=== PATIENT | male | born 1970 | race Caucasian/White ===

== ENCOUNTER 2020-12-10 16:44 | Inpatient (IN) ==
[2020-12-10 17:25] LABS: Basophils # 0.1 K/mcL (0.0-0.2); Basophils % 0.4 %; Eosinophils # 0.1 K/mcL (0.0-0.6); Eosinophils % 0.7 %; Hematocrit 43.1 % (37.5-50.1); Hemoglobin 13.9 g/dL (12.9-16.9); Immature Granulocytes % 0.8 % (0-4); Lymphocytes # 1.2 K/mcL (0.6-4.6); Lymphocytes % 8.8 %; Mean Corpuscular HGB Conc 32.3 g/dL (31.6-35.5); Mean Corpuscular Hemoglobin 28.3 pg (28.0-33.3); Mean Corpuscular Volume 87.8 fL (83.0-100.0); Mean Platelet Volume 9.1 fL (9.4-12.4); Monocytes # 0.8 K/mcL (0.0-1.3); Monocytes % 5.8 %; Neutrophils # 11.3 K/mcL (1.6-8.9); Platelet Count 279 K/mcL (140-400); Red Blood Count 4.91 M/mcL (4.19-5.50); Red Cell Distribution Width 13.8 % (11.5-14.5); Segmented Neutrophils % 83.5 %; White Blood Count 13.6 K/mcL (4.3-11.1)
[2020-12-10 17:48] LABS: Bilirubin,Urine Negative (Negative); Blood,Urine Negative (Negative); Clarity,Urine Clear (Clear); Color,Urine Colorless (Yellow); Glucose,Urine (UA) Normal (Normal); Ketones,Urine Negative (Negative); Leukocyte Esterase,Urine Negative (Negative); Nitrite,Urine Negative (Negative); PH,Urine 6.5 pH Units (5.0-8.0); Protein,Urine Negative (Neg-Trace); Specific Gravity,Urine 1.012 (1.010-1.025); Urobilinogen,Urine Normal (Normal)
[2020-12-10 17:50] LABS: Alanine Aminotransferase 22 Units/L (7-52); Albumin 4.2 g/dL (3.5-5.7); Albumin/Globulin Ratio 1.4 (1.1-2.2); Alkaline Phosphatase 55 Units/L (34-104); Aspartate Amino Transferase 19 Units/L (13-39); BUN/Creatinine Ratio 8 (6-26); Bilirubin,Indirect 0.3 mg/dL (0.0-1.0); Bilirubin,Total 0.3 mg/dL (0.3-1.0); Blood Urea Nitrogen 11 mg/dL (6-20); Carbon Dioxide 25 mEq/L (23-29); Chloride 104 mEq/L (98-107); Globulin 3.1 g/dL (2.4-3.5); Glucose 133 mg/dL (70-105); Lipase 145 Units/L (11-82); Osmolality,Calculated 287 (280-300); Potassium 3.4 mEq/L (3.5-5.1); Sodium 138 mEq/L (136-145); Total Protein 7.3 g/dL (6.4-8.9); Troponin I < 0.03 ng/mL (< 0.04); eGFR For African Americans > 60 (> 60); eGFR For Non-African Americans 57 (> 60)
[2020-12-10] MEDS ORDERED: Aspirin 81 MG TAB.CHEW PO ONE (18:03)
[2020-12-10] MEDS ORDERED: Morphine Sulfate 2 MG/ML SYRINGE IVP ONE (18:03)
[2020-12-10] MEDS ORDERED: Ondansetron 4 MG/2 ML VIAL IVP ONE (18:03)
[2020-12-10] MEDS ORDERED: 0.9 % Sodium Chloride 1,000 ML IVC ONE (18:04)
[2020-12-10] MEDS ORDERED: Isovue-370 500 ML BOTTLE IVP ONE (18:04)
[2020-12-10] MEDS ORDERED: Piperacillin/Tazobactam 3.375 GM in Water for inj. (sterile) 20 ML IVP ONE (20:04)
[2020-12-10] MEDS ORDERED: *HR* HYDROmorphone (PF) 1 MG/ML SYRINGE IVP ONE (20:04)
[2020-12-10] MEDS ORDERED: Naloxone 0.4 MG/ML INJ IVP PRN (23:59)
[2020-12-10] MEDS ORDERED: Melatonin 3 MG TABLET PO PRN (23:59)
[2020-12-10] MEDS ORDERED: Ondansetron 4 MG/2 ML VIAL IVP PRN (23:59)
[2020-12-11] MEDS ORDERED: 0.9 % Sodium Chloride 1,000 ML IVC ONE (03:07)
[2020-12-11] MEDS ORDERED: Piperacillin/Tazobactam 3.375 GM in 0.9 % Sodium Chloride Mini Bag 100 ML IVPB SCH (05:00)
[2020-12-11 06:48] LABS: Basophils % 0.4 %; Eosinophils # 0.1 K/mcL (0.0-0.6); Eosinophils % 0.9 %; Hematocrit 44.2 % (37.5-50.1); Hemoglobin 14.4 g/dL (12.9-16.9); Immature Granulocytes % 0.5 % (0-4); Immature Platelets 2.6 % (1.1-6.1); Lymphocytes # 1.3 K/mcL (0.6-4.6); Lymphocytes % 11.7 %; Mean Corpuscular HGB Conc 32.6 g/dL (31.6-35.5); Mean Corpuscular Hemoglobin 29.4 pg (28.0-33.3); Mean Corpuscular Volume 90.2 fL (83.0-100.0); Mean Platelet Volume 9.7 fL (9.4-12.4); Monocytes # 0.8 K/mcL (0.0-1.3); Monocytes % 6.8 %; Neutrophils # 9.1 K/mcL (1.6-8.9); Platelet Count 277 K/mcL (140-400); Red Cell Distribution Width 14.1 % (11.5-14.5); Segmented Neutrophils % 79.7 %; White Blood Count 11.4 K/mcL (4.3-11.1)
[2020-12-11 07:10] LABS: Alanine Aminotransferase 45 Units/L (7-52); Albumin/Globulin Ratio 1.4 (1.1-2.2); Alkaline Phosphatase 69 Units/L (34-104); Aspartate Amino Transferase 55 Units/L (13-39); BUN/Creatinine Ratio 6 (6-26); Bilirubin,Total 0.4 mg/dL (0.3-1.0); Blood Urea Nitrogen 9 mg/dL (6-20); Calcium 8.6 mg/dL (8.6-10.3); Carbon Dioxide 28 mEq/L (23-29); Chloride 104 mEq/L (98-107); Globulin 2.9 g/dL (2.4-3.5); Glucose 97 mg/dL (70-105); Magnesium 2.2 mg/dL (1.6-2.6); Osmolality,Calculated 287 (280-300); Phosphorous 3.8 mg/dL (2.7-4.5); Potassium 3.7 mEq/L (3.5-5.1); Sodium 139 mEq/L (136-145); Total Protein 6.9 g/dL (6.4-8.9); eGFR For African Americans > 60 (> 60); eGFR For Non-African Americans 54 (> 60)
[2020-12-11 07:15] LABS: Basophils # 0.1 K/mcL (0.0-0.2)
[2020-12-11 07:16] LABS: Platelet Estimate Normal (Normal)
[2020-12-11] MEDS ORDERED: *HR* FentaNYL (PF) 100 MCG/2 ML VIAL ONE (07:31)
[2020-12-11] MEDS ORDERED: *HR* Midazolam HCl 2 MG/2 ML VIAL ONE (07:31)
[2020-12-11] MEDS ORDERED: *HR* Propofol 200 MG/20 ML VIAL IVP ONE (07:32)
[2020-12-11] MEDS ORDERED: *HR* Rocuronium Bromide 50 MG/5 ML VIAL ONE (07:33)
[2020-12-11] MEDS ORDERED: Lidocaine -MPF 2% 2 ML VIAL ONE (07:33)
[2020-12-11] MEDS ORDERED: *HR* Remifentanil 1 MG VIAL IVP ONE (08:42)
[2020-12-11] MEDS ORDERED: *HR* OxyCODONE Immed Rel 5 MG TABLET PO PRN (08:48)
[2020-12-11] MEDS ORDERED: *HR* HYDROmorphone PF 0.5 MG/0.5 ML SYRINGE IVP PRN (08:48)
[2020-12-11] MEDS ORDERED: Acetaminophen IV 1,000 MG/100 ML BAG IVPB ONE (08:53)
[2020-12-11] MEDS ORDERED: Ondansetron 4 MG/2 ML VIAL ONE (09:27)
[2020-12-11] MEDS ORDERED: *HR* HYDROMORPHONE 2 MG/ML VIAL ONE (10:13)
[2020-12-11] MEDS ORDERED: Sugammadex Sodium 200 MG/2 ML VIAL IV ONE (10:27)
[2020-12-11] MEDS ORDERED: *HR* LORazepam 1 MG TABLET PO PRN (11:21)
[2020-12-11] MEDS ORDERED: Naloxone 0.4 MG/ML INJ IVP PRN (11:21)
[2020-12-11] MEDS ORDERED: Melatonin 3 MG TABLET PO PRN (11:21)
[2020-12-11] MEDS ORDERED: Ringers Solution, Lactated 1,000 ML ONE (11:23)
[2020-12-11] MEDS: Piperacillin/Tazobactam 3.375 GM in 0.9 % Sodium Chloride Mini Bag 100 ML IVPB SCH ×2 (14:35→21:17)
[2020-12-11] MEDS ORDERED: 0.9 % Sodium Chloride 1,000 ML ONE (15:01)
[2020-12-11] MEDS ORDERED: 0.9 % Sodium Chloride 1,000 ML IV ONE (15:07)
[2020-12-11] MEDS ORDERED: Ringers Solution, Lactated 1,000 ML IVC SCH (17:45)
[2020-12-11] MEDS: Ondansetron 4 MG/2 ML VIAL IVP PRN (17:55)
[2020-12-11] MEDS ORDERED: traZODone 50 MG TABLET PO SCH (21:00)
[2020-12-11] MEDS: METHYLPHENIDATE HCL 10 MG PO SCH (21:12)
[2020-12-12] MEDS: Ondansetron 4 MG/2 ML VIAL IVP PRN (01:59)
[2020-12-12] MEDS ORDERED: Acetaminophen IV 1,000 MG/100 ML BAG IVPB ONE ×2 (02:16→08:35)
[2020-12-12] MEDS: Piperacillin/Tazobactam 3.375 GM in 0.9 % Sodium Chloride Mini Bag 100 ML IVPB SCH ×3 (04:28→20:15)
[2020-12-12 05:58] LABS: Basophils % 0.2 %; Hematocrit 30.2 % (37.5-50.1); Immature Granulocytes % 0.7 % (0-4); Lymphocytes # 1.2 K/mcL (0.6-4.6); Lymphocytes % 4.8 %; Mean Corpuscular HGB Conc 32.8 g/dL (31.6-35.5); Mean Corpuscular Hemoglobin 29.3 pg (28.0-33.3); Mean Corpuscular Volume 89.3 fL (83.0-100.0); Mean Platelet Volume 9.5 fL (9.4-12.4); Monocytes # 1.4 K/mcL (0.0-1.3); Monocytes % 5.6 %; Neutrophils # 21.8 K/mcL (1.6-8.9); Platelet Count 315 K/mcL (140-400); Red Blood Count 3.38 M/mcL (4.19-5.50); Red Cell Distribution Width 14.2 % (11.5-14.5); Segmented Neutrophils % 88.7 %
[2020-12-12 06:01] LABS: Basophils # 0.1 K/mcL (0.0-0.2); Hemoglobin 9.9 g/dL (12.9-16.9); White Blood Count 24.6 K/mcL (4.3-11.1)
[2020-12-12 06:23] LABS: Albumin 3.9 g/dL (3.5-5.7); Albumin/Globulin Ratio 1.4 (1.1-2.2); Bilirubin,Total 0.5 mg/dL (0.3-1.0); Calcium 8.3 mg/dL (8.6-10.3); Globulin 2.7 g/dL (2.4-3.5); Magnesium 1.8 mg/dL (1.6-2.6); Potassium 4.3 mEq/L (3.5-5.1); Total Protein 6.6 g/dL (6.4-8.9)
[2020-12-12 06:39] LABS: Platelet Estimate Normal (Normal)
[2020-12-12] MEDS: METHYLPHENIDATE HCL 10 MG PO SCH ×2 (06:54→20:18)
[2020-12-12] MEDS ORDERED: Orphenadrine 60 MG/2 ML VIAL IVP ONE (08:36)
[2020-12-12] MEDS ORDERED: *HR* OxyCODONE Immed Rel 5 MG TABLET PO PRN (08:36)
[2020-12-12] MEDS ORDERED: Simethicone 80 MG TAB.CHEW PO PRN (08:36)
[2020-12-12] MEDS ORDERED: 0.9 % Sodium Chloride 1,000 ML IVC ONE (08:42)
[2020-12-12] MEDS ORDERED: amLODIPine 5 MG TABLET PO SCH (09:00)
[2020-12-12] MEDS: BuPROPion SR (12 HR) 150 MG TABLET PO SCH (09:19)
[2020-12-12] MEDS: 0.9 % Sodium Chloride 1,000 ML IVC SCH (10:42)
[2020-12-12 14:30] LABS: Basophils % 0.1 %; Eosinophils % 0.1 %; Hematocrit 23.1 % (37.5-50.1); Immature Granulocytes % 0.6 % (0-4); Lymphocytes # 1.5 K/mcL (0.6-4.6); Lymphocytes % 8.9 %; Mean Corpuscular HGB Conc 32.9 g/dL (31.6-35.5); Mean Corpuscular Hemoglobin 29.1 pg (28.0-33.3); Mean Corpuscular Volume 88.5 fL (83.0-100.0); Mean Platelet Volume 9.2 fL (9.4-12.4); Monocytes # 1.4 K/mcL (0.0-1.3); Monocytes % 8.2 %; Neutrophils # 13.9 K/mcL (1.6-8.9); Platelet Count 237 K/mcL (140-400); Red Blood Count 2.61 M/mcL (4.19-5.50); Red Cell Distribution Width 14.3 % (11.5-14.5); Segmented Neutrophils % 82.1 %; White Blood Count 16.9 K/mcL (4.3-11.1)
[2020-12-12] MEDS: Acetaminophen IV 1,000 MG/100 ML BAG IVPB SCH ×2 (15:34→21:45)
[2020-12-12 15:44] LABS: Hemoglobin 7.6 g/dL (12.9-16.9)
[2020-12-12 16:20] LABS: Hematocrit 23.3 % (37.5-50.1); Hemoglobin 7.8 g/dL (12.9-16.9)
[2020-12-12] MEDS: Sennosides/Docusate Sodium TABLET PO SCH (20:15)
[2020-12-12 22:22] LABS: Hematocrit 26.7 % (37.5-50.1); Hemoglobin 8.7 g/dL (12.9-16.9)
[2020-12-13] MEDS: 0.9 % Sodium Chloride 1,000 ML IVC SCH ×2 (02:05→04:16)
[2020-12-13] MEDS: Acetaminophen IV 1,000 MG/100 ML BAG IVPB SCH ×2 (03:48→10:38)
[2020-12-13] MEDS: Piperacillin/Tazobactam 3.375 GM in 0.9 % Sodium Chloride Mini Bag 100 ML IVPB SCH (04:15)
[2020-12-13] MEDS: METHYLPHENIDATE HCL 10 MG PO SCH (07:05)
[2020-12-13] MEDS: Sennosides/Docusate Sodium TABLET PO SCH (08:00)
[2020-12-13] MEDS: BuPROPion SR (12 HR) 150 MG TABLET PO SCH (08:01)
[2020-12-13 10:58] LABS: Basophils % 0.3 %; Eosinophils # 0.1 K/mcL (0.0-0.6); Eosinophils % 0.7 %; Hematocrit 25.3 % (37.5-50.1); Hemoglobin 8.2 g/dL (12.9-16.9); Immature Granulocytes % 0.9 % (0-4); Lymphocytes # 1.1 K/mcL (0.6-4.6); Lymphocytes % 8.5 %; Mean Corpuscular HGB Conc 32.4 g/dL (31.6-35.5); Mean Corpuscular Hemoglobin 29.8 pg (28.0-33.3); Mean Platelet Volume 9.7 fL (9.4-12.4); Monocytes # 0.9 K/mcL (0.0-1.3); Monocytes % 6.9 %; Neutrophils # 11.1 K/mcL (1.6-8.9); Nucleated Red Blood Cells 0.1 /100 WBC (0); Platelet Count 238 K/mcL (140-400); Red Blood Count 2.75 M/mcL (4.19-5.50); Red Cell Distribution Width 14.4 % (11.5-14.5); Segmented Neutrophils % 82.7 %; White Blood Count 13.4 K/mcL (4.3-11.1)
[2020-12-13 11:23] LABS: % Iron Saturation 9 % (20-55); Alanine Aminotransferase 56 Units/L (7-52); Albumin 3.7 g/dL (3.5-5.7); Albumin/Globulin Ratio 1.3 (1.1-2.2); Alkaline Phosphatase 53 Units/L (34-104); Aspartate Amino Transferase 37 Units/L (13-39); BUN/Creatinine Ratio 11 (6-26); Bilirubin,Direct 0.1 mg/dL (0.0-0.2); Bilirubin,Indirect 0.3 mg/dL (0.0-1.0); Bilirubin,Total 0.4 mg/dL (0.3-1.0); Blood Urea Nitrogen 16 mg/dL (6-20); Calcium 8.7 mg/dL (8.6-10.3); Carbon Dioxide 24 mEq/L (23-29); Chloride 107 mEq/L (98-107); Globulin 2.8 g/dL (2.4-3.5); Glucose 108 mg/dL (70-105); Iron 28 mcg/dL (65-175); Magnesium 2.2 mg/dL (1.6-2.6); Osmolality,Calculated 286 (280-300); Phosphorous 1.7 mg/dL (2.7-4.5); Potassium 4.1 mEq/L (3.5-5.1); Sodium 137 mEq/L (136-145); Total Protein 6.5 g/dL (6.4-8.9); Transferrin 225 mg/dL (203-362); eGFR For African Americans > 60 (> 60); eGFR For Non-African Americans 53 (> 60)
[2020-12-13 11:33] LABS: Ferritin 48 ng/mL (20-250)
[2020-12-13 11:39] LABS: Folate 7.3 ng/mL (3.0-16.0)
[2020-12-13 11:46] VITALS: BP 148/76
== END 2020-12-13 11:51 | disposition home or self-care (01) | DRG 418 ==
LOC: 3BNU 16:44 → EMEROOARM 16:44 → SUATTDRO 22:34 → CDU 23:06 → 3BNU 12-11 17:39
PROVIDERS: ADMIT Family Medicine; ATTEND Internal Medicine